=== PATIENT | male | born 1955 | race Native Hawaiian/Other Pacific Islander ===

== ENCOUNTER 2022-01-23 22:58 | Emergency (ER) | payer OTHER ==
[~2022-01-23] VITALS: Ht 172.7 cm; Wt 77.1 kg
[2022-01-24 00:03] LABS: POTASSIUM 2.9 mmol/L (3.6-5.2)
[2022-01-24 00:06] LABS: PLATELET COUNT 105 K/uL (142-355)
[2022-01-24 00:42] LABS: PARTIAL THROMBOPLASTIN TIME 27.1 SECONDS (24.5-33.6)
[2022-01-24 09:38] VITALS: BP 101/77; TEMP 97.3
== END 2022-01-24 09:38 | disposition home or self-care (01) ==
LOC: ED 22:58
PROVIDERS: Emergency Medicine
DX: N28.9 Disorder of kidney and ureter, unspecified (principal); E87.6 Hypokalemia; I48.91 Unspecified atrial fibrillation; S00.81XA Abrasion of other part of head, initial encounter; R60.0 Localized edema; Z20.822 Contact with and (suspected) exposure to COVID-19; V47.5XXA Car driver injured in collision with fixed or stationary object in traffic accident, initial encounter; Y92.89 Other specified places as the place of occurrence of the external cause
CPT/HCPCS: 80048; 80053; 80307; 80320; 81002; 82550; 83880; 84484; 85027; 85610; 85730; 87635; 90471; 90715; 93005; 96360; 96365; 99284; U0003